=== PATIENT | female | born 1965 | race Caucasian/White ===

== ENCOUNTER → 2017-02-08 | Outpatient (CLI) | payer OTHER ==
[~2017-02-08] MED LIST: LORTAB 5/500 501 TAB PO
[2017-02-08 11:43] LABS: HEMOGLOBIN 14.9 g/dL (12.2-16.2); LYMPH # 2.6 K/mm3 (0.7-4.5); LYMPH % 31.5 % (10-50.0)
[2017-02-08 12:35] LABS: BUN 9 mg/dL (7-18)
[2017-02-08 12:38] LABS: GFR (ESTIMATED) 89 ML/MIN (59-)
--- NOTE | 2017-02-09 08:25 | RADIOLOGY REPORT PS360 ---
CHEST(2 VIEWS-NOT PORTABLE) HISTORY: TOBACCO USE, COUGHcough several months Patient Age: 51 years: Female Ordering Physician: Jada Blackwell APRN TECHNIQUE: PA and lateral COMPARISON :January 2009 CXR 2 view FINDINGS The right kiara appears more prominent & generous than previous 2009 CXR studies the density towards the right suprahilar region.. Although this could be due to technique, if there is persistent cough a follow-up chest film consider CT chest to further evaluate if history of smoking. The Slight coarsening markings also seen towards the right infrahilar region but this appears stable and may reflect some chronic changes.. Stable small 5 mm calcified granuloma at the right midlung Left lung appears stable clear and unremarkable. Heart normal size. No pleural effusion or pneumothorax.. Mild scoliosis T-spine. Gradual dextroscoliosis of the mid and lower T-spine with slight levoscoliosis upper T-spine. IMPRESSION: --------- 1. The right suprahilar region is very slightly more prominent today than 2009 study. But this may be due to technique & projection .... Would encourage a follow-up chest film in 2 months; or if significant smoking history consider CT chest ( preferably with contrast) to further evaluate & better exclude any underlying pathology.. Mild asymmetric coarsening markings right infrahilar region most likely minor chronic features & appear stable 2. Left lung clear and unremarkable 3. Stable mild scoliosis T-spine.
== END ==
LOC: LAB 11:21
PROVIDERS: Nurse Practitioner Family
DX: R05 Cough (principal); J41.8 Mixed simple and mucopurulent chronic bronchitis; E03.9 Hypothyroidism, unspecified; Z72.0 Tobacco use

== ENCOUNTER → 2017-02-19 | Outpatient (CLI) | payer OTHER ==
--- NOTE | 2017-02-20 10:51 | RADIOLOGY REPORT PS360 ---
CT CHEST W/WO CONTRAST COMPARISON: PA and lateral chest 02/08/2017 HISTORY: Questionable a prominent right hilum on recent chest film TECHNIQUE: Multiaxial scans obtained from the thoracic inlet the hemidiaphragms. Precontrast scans were performed followed by repeat scans after injection of IV contrast. Sagittal and coronal reformats were evaluated as well. FINDINGS: The lung trujillo are well expanded. There is no acute infiltrate seen. There is a calcified granuloma right lower lobe. The screw mediastinum unremarkable. There is no abnormal hilar lymphadenopathy. Cardiac size is normal. Is no pleural fluid. Scans into the upper abdomen show both adrenal glands are normal. There is a small hiatal hernia. There is mild to moderate dextroscoliotic curvature of the thoracic spine. IMPRESSION: Small hiatal hernia and evidence of old granulomatous disease, no other significant abnormality noted
== END ==
LOC: RAD 13:36
DX: R93.8 Abnormal findings on diagnostic imaging of other specified body structures (principal)
CPT/HCPCS: Q9967